=== PATIENT | male | born 1960 | race Caucasian/White ===

== ENCOUNTER 2017-07-02 13:10 | Day surgery (SDC) | payer OTHER ==
[~2017-07-02] VITALS: Ht 180.3 cm; Wt 99.8 kg
[~2017-07-02 13:10] MED LIST: OMEP20CA11 PO; Sodium Chloride LOK Flush 10 mL Syringe IV PRN; fentaNYL-PF 50 mCg/mL 2 mL Inj IVPUSH PRN
[2017-07-02 13:56] VITALS: BP 118/74; PULSE 66; RESP 14; O2SAT 98
[2017-07-02] MEDS: 0.9% Sodium Chloride 1,000 ML IV SCH ×2 (15:16→15:29)
[2017-07-02 15:35] VITALS: BP 107/78; PULSE 73; RESP 14; O2SAT 96
[2017-07-02 15:45] VITALS: BP 127/82; PULSE 68; RESP 14; O2SAT 97
--- NOTE | 2017-07-02 15:52 | ENDO ---
[address] [address] ENDOSCOPY PROCEDURE PATIENT: ROBERTH RICHARDS : 1960 MR#: [id number] ADMIT: 07/02/2017 JOB ID: [id number] DATE OF SERVICE: 07/02/2017 PROCEDURE: Esophagogastroduodenoscopy. INDICATION: Gastroesophageal reflux disease. ASA classification is 2. Mallampati score is 2. MEDICATIONS: Versed 6 mg, fentanyl 125 mcg. INSTRUMENT USED: [id number] PROCEDURE DETAILS: After informed consent was obtained, the patient was brought to the GI suite, where he was placed on oxygen via nasal cannula and monitored with continuous pulse oximeter, telemetry, and blood pressure monitoring. A time-out was performed. Then, he was placed in a left lateral decubitus position and medications were administered for sedation. A bite block was placed. The standard EGD scope was inserted through the bite block and advanced under direct visualization to the second portion of duodenum without difficulty. FINDINGS: 1. In the second portion of the duodenum, there was a thickened fold at the 7 o'clock position that was biopsied. The appearance of the fold appeared to be adenomatous. 2. At the angularis, there was a polyp that measured approximately 4-5 mm. Polyp was biopsied. 3. Erythema was noted throughout the antrum and body of the stomach suggestive of gastritis. Multiple random biopsies were obtained. 4. Retroflexed views in the gastric body revealed a normal-appearing cardia and fundus. 5. The GE junction was at approximately 41 cm which coincided with top of the gastric folds. Just above the GE junction, there was a small island of salmon-colored mucosa that was biopsied. 6. There was mild erythema and edema in the distal esophagus suggestive of mild esophagitis. IMPRESSION: 1. Thickened duodenal fold in second portion. 2. Polyp at the angularis. 3. Irregular gastroesophageal junction with esophagitis. RECOMMENDATIONS: 1. Await biopsy results. 2. Increase PPI to 40 mg daily. 3. Follow up in GI clinic. COMPLICATIONS: None. ESTIMATED BLOOD LOSS: Less than 5 mL cc: Primary care provider (unknown)
[2017-07-02 15:56] VITALS: BP 136/90; PULSE 73; RESP 12; O2SAT 97
--- NOTE | 2017-07-05 11:34 | PATH ---
SURGICAL PATHOLOGY Attending Physician:Molly Harris CASE STATUS: Signed Out PATIENT NAME: ROBERTH RICHARDS PID: [id number] : 1960 DATE COLLECTED:07/02/2017 00:00 SPECIMEN: 1: Duodenum, Biopsy 2: Stomach, Biopsy 3: Gastric, Biopsy 4: Esophagus, Biopsy CLINICAL HISTORY: 1). THICKENED DUODENAL FOLD 2). POLYP AT ANGULARIS 3). GASTRIC BIOPSY, RULE OUT H.PYLORI 4). DISTAL ESOPHAGUS FINAL DIAGNOSIS: 1.DUODENUM, BIOPSY: ACTIVE DUODENITIS (PLEASE SEE COMMENT). Negative for histologic evidence of celiac disease, granulomas, dysplasia and malignancy. 2.STOMACH, BIOPSY: ANTRAL MUCOSA WITH CHRONIC ACTIVE GASTRITIS. POSITIVE FOR HELICOBACTER ORGANISMS. Negative for intestinal metaplasia. Negative for dysplasia and malignancy. 3.STOMACH, BIOPSY: ANTRAL MUCOSA WITH CHRONIC ACTIVE GASTRITIS. POSITIVE FOR HELICOBACTER ORGANISMS. POSITIVE FOR INTESTINAL METAPLASIA INVOLVING ONE OF THE TWO BIOPSY FRAGMENTS. Negative for dysplasia and malignancy. 4.DISTAL ESOPHAGUS, BIOPSY: SQUAMOCOLUMNAR JUNCTIONAL MUCOSA WITH CHRONIC ACTIVE ESOPHAGITIS CONSISTENT WITH REFLUX. Negative for Brand' s esophagus, dysplasia and malignancy. COMMENT: The duodenal biopsy shows small bowel mucosa with active duodenitis consistent with peptic duodenitis. ICD10 B96.81 K21.0 K29.80 GROSS DESCRIPTION: The specimen is received in four formalin filled containers labeled with the patient's name. 1). The specimen is labeled "thickened duodenal bulb" and consists of 2 portions of tissue which aggregate to 0.3 x 0.3 x 0.2 CM. The specimen is entirely submitted in cassette 1A. 2). The specimen is labeled "polyp at angularis" and consists of a 0.3 x 0.3 x 0.2 CM portion of tissue which is entirely submitted in cassettes 2A. 3). The specimen is labeled "gastric" and consists of 2 portions of tissue which aggregate to 0.3 x 0.3 x 0.2 CM. The specimen is entirely submitted in cassette 3A. 4). The specimen is labeled "distal esophagus" and consists of 2 portions of tissue which aggregate to 0.4 x 0.3 x 0.2 CM. The specimen is entirely submitted in cassette 4A. 07/03/2017DC MICRO DESCRIPTION: See diagnosis. ICD-9 CODES: CPT CODES: 1: 82730 2: 81885 3: 09474 4: 16193 Electronically Signed Out Jose E Melton MD, PhD [facility] [address], [place] [address] Technical component performed at [facility], [address], [place], [address]
== END 2017-07-02 23:59 | disposition home or self-care (01) ==
LOC: END 13:10
PROVIDERS: ATTEND Internal Medicine Gastroenterology
DX: K29.80 Duodenitis without bleeding (principal); K31.7 Polyp of stomach and duodenum; B96.81 Helicobacter pylori [H. pylori] as the cause of diseases classified elsewhere; K29.50 Unspecified chronic gastritis without bleeding; K21.9 Gastro-esophageal reflux disease without esophagitis; R10.13 Epigastric pain; Z87.891 Personal history of nicotine dependence
CPT/HCPCS: 43239; 99153; G0500; J2250; J3010; J7030